=== PATIENT | male | born 1975 | race Caucasian/White ===

== ENCOUNTER 2020-06-05 02:46 | Emergency (ER) | payer SELFPAY ==
[2020-06-05] MEDS ORDERED: Sodium Chloride 0.9% 2.5 ML Syringe FLUSH PRN (02:52)
[2020-06-05] MEDS ORDERED: Sodium Chloride 0.9% 10 ML Syringe FLUSH PRN (02:52)
[2020-06-05] MEDS: Sodium Chloride 0.9% 1,000 ML IV ONE (03:17)
[2020-06-05] MEDS: MVI, Adult with Vitamin K 10 ML, Thiamine 100 MG, Folic Acid 1 MG in Sodium Chloride 0.... IV ONE ×4 (03:18)
--- NOTE | 2020-06-05 03:18 | EDM.PDOC ---
ED HPI GENERAL MEDICAL PROBLEM - General Chief Complaint: Drug or Alcohol Abuse Stated Complaint: INTOXICATION Time Seen by Provider: 06/05/20 03:00 - History of Present Illness INITIAL COMMENTS - FREE TEXT/NARRATIVE: HISTORY AND PHYSICAL: History of present illness: This is a 45-year-old gentleman who was brought in today by EMS secondary to acute alcohol intoxication. Per EMS, patient was playing his music extremely loud in his apartment so his neighbors called the police. Upon police arrival the patient did not answer his door immediately. Once patient answered his door, the patient appeared to be extremely intoxicated so EMS was dispatched by police. Upon EMS arrival, patient reported that he has recently lost his mother and father and he has been binging on alcohol excessively every day. Patient was brought into the ED today to see if we give him any assistance with alcohol detox. Patient denies any fevers, shakes, chills, nausea, vomiting, diarrhea, dysuria, frequency, urgency, chest pain, shortness of breath, abdominal pain, head injury, head trauma. Patient denies any HI/SI. Patient is extremely cooperative and is requesting assistance with detox that we can offer. Patient denies any alcohol withdrawal seizures in the past. Patient reports that whenever he is try to stop drinking alcohol that is been painful physically. Review of systems: As per history of present illness and below otherwise all systems reviewed and negative. Past medical history: As per history of present illness and as reviewed below otherwise noncontributory. Surgical history: As per history of present illness and as reviewed below otherwise noncontributory. Social history: No reported history of drug or alcohol abuse. Family history: As per history of present illness and as reviewed below otherwise n oncontributory. Physical exam: Constitutional: Patient is oriented to person, place, and time. Appears well- developed and well-nourished. No distress. HEENT: Moist mucous membranes Head: Normocephalic and atraumatic Eyes: Right eye exhibits no discharge. Left eye exhibits no discharge. No scleral icterus Neck: Normal range of motion. No tracheal deviation present. Cardiovascular: Normal rate and regular rhythm. Pulmonary: Effort normal, no respiratory distress. Abdominal: No distention Musculoskeletal: Normal range of motion Neurologic: Alert and oriented to person, place and time. Skin: [place], warm and dry. Psychiatric: Normal mood and affect. Behavior is normal. Judgment and thought content normal. Nursing note and vital signs have been reviewed Patient is alert awake and orient x3. Patient is appropriate, pleasant, cooperative and does not appear to be in any acute distress. Patient's vital signs are all within normal limits. This patient was seen and evaluated during the 2019 SARS-CoV-2 novel coronavirus pandemic period. Community viral transmission is ongoing at time of this encounter and the emergency department is operating under pandemic response pro cedures. Assessment and plan: This is a 45-year-old gentleman who presents ER today secondary to alcohol use disorder. Patient will be monitored in the ER. Patient will have his labs checked including a CBC, CMP and alcohol level. Patient be given a banana bag for hydration and will be allowed to sober up in the ED safely. Patient be given outpatient resources to contact for assistance with alcohol detox. Patient's labs have been reviewed. Patient is clinically hemodynamically stable and has been ambulating in ED with stable gait. At this time the patient is requesting to be discharged home. Patient be discharged home in stable condition. Reassessment at the time of disposition demonstrates that the patient is in no acute distress. The patient has remained stable throughout the entire ED visit and is without objective evidence for acute process requiring urgent intervention or hospitalization. The patient is stable for discharge, counseling is provided as documented above, discussed symptomatic treatment and specific conditions for return. I have spoken with the patient/caregiver and discussed todays findings, in addition to providing specific details for the plan of care. Questions are answered and there is agreement with the plan. Definitive disposition and diagnosis as appropriate pending reevaluation and review of above. - Related Data Allergies Allergy/AdvReac Type Severity Reaction Status Date / Time No Known Allergies Allergy Verified 06/05/20 02:47 Home Meds: Home Meds . [No Known Home Meds] 06/05/20 [History] Past Medical History HEENT History: Reports: None Cardiovascular History: Reports: None Respiratory History: Reports: None Gastrointestinal History: Reports: None Genitourinary History: Reports: None Musculoskeletal History: Reports: None Neurological History: Reports: None Psychiatric History: Reports: Addiction Endocrine/Metabolic History: Reports: None Insulin Pump Model and Log Chain Worker: None Hematologic History: Reports: None Immunologic History: Reports: None Oncologic (Cancer) History: Reports: None Dermatologic History: Reports: None - Infectious Disease History Infectious Disease History: Reports: None Social & Family History - Tobacco Use Tobacco Use Status *Q: Current Every Day Tobacco User Years of Tobacco use: 30 Packs/Tins Daily: 1 - Recreational Drug Use Recreational Drug Use: Yes Drug Use in Last 12 Months: Yes Recreational Drug Type: Reports: Marijuana/Hashish ED ROS GENERAL - Review of Systems Review Of Systems: See Below ED EXAM, GENERAL - Physical Exam Exam: See Below Course - Vital Signs Last Recorded V/S: Last Vital Signs Temp 97.3 F 06/05/20 06:30 Pulse 88 06/05/20 06:30 Resp 18 06/05/20 06:30 BP 108/81 06/05/20 06:30 Pulse Ox 96 06/05/20 06:30 - Orders/Labs/Meds Orders: Active Orders 24 hr Category Date Time Status Sodium Chloride 0.9% [Saline Flush] Med 06/05/20 02:52 Active 10 ml FLUSH ASDIRECTED PRN Sodium Chloride 0.9% [Saline Flush] Med 06/05/20 02:52 Active 2.5 ml FLUSH ASDIRECTED PRN Saline Lock Insert [OM.PC] Stat Oth 06/05/20 02:52 Ordered Medication Orders Sodium Chloride (Saline Flush) 10 ml FLUSH ASDIRECTED PRN PRN Reason: Keep Vein Open Sodium Chloride (Saline Flush) 2.5 ml FLUSH ASDIRECTED PRN PRN Reason: Keep Vein Open Labs: Laboratory Tests 06/05/20 06/05/20 Range/Units 02:51 03:09 WBC 6.48 (4.0-11.0) K/uL RBC 4.97 (4.50-5.90) M/uL Hgb 16.2 (13.0-17.0) g/dL Hct 49.0 (38.0-50.0) % MCV 98.6 H (80.0-98.0) fL MCH 32.6 H (27.0-32.0) pg MCHC 33.1 (31.0-37.0) g/dL RDW Std Deviation 49.1 (28.0-62.0) fl RDW Coeff of Claude 14 (11.0-15.0) % Plt Count 206 (150-400) K/uL MPV 10.00 (7.40-12.00) fL Neut % (Auto) 36.4 L (48.0-80.0) % Lymph % (Auto) 48.6 H (16.0-40.0) % Lamb % (Auto) 12.3 (0.0-15.0) % Eos % (Auto) 2.2 (0.0-7.0) % Baso % (Auto) 0.5 (0.0-1.5) % Neut # (Auto) 2.4 (1.4-5.7) K/uL Lymph # (Auto) 3.2 H (0.6-2.4) K/uL Lamb # (Auto) 0.8 (0.0-0.8) K/uL Eos # (Auto) 0.1 (0.0-0.7) K/uL Baso # (Auto) 0.0 (0.0-0.1) K/uL Nucleated RBC % 0.0 /100WBC Nucleated RBCs # 0 K/uL Sodium 144 (136-148) mmol/L Potassium 3.8 (3.5-5.1) mmol/L Chloride 105 (98-107) mmol/L Carbon Dioxide 25.2 (21.0-32.0) mmol/L BUN 13 (7.0-18.0) mg/dL Creatinine 0.9 (0.8-1.3) mg/dL Est Cr Clr Drug Dosing TNP Estimated GFR (MDRD) > 60.0 ml/min Glucose 110 H (74-106) mg/dL Calcium 8.0 L (8.5-10.1) mg/dL Total Bilirubin 0.2 (0.2-1.0) mg/dL AST 38 H (15-37) IU/L ALT 54 (14-63) IU/L Alkaline Phosphatase 77 (46-116) U/L Total Protein 7.7 (6.4-8.2) g/dL Albumin 3.7 (3.4-5.0) g/dL Globulin 4.0 (2.6-4.0) g/dL Albumin/Globulin Ratio 0.9 (0.9-1.6) Ethyl Alcohol 477 mg/dL Meds: Medications Generic Name Dose Route Start Last Admin Trade Name Freq PRN Reason Stop Dose Admin Sodium Chloride 10 ml 06/05/20 02:52 Saline Flush FLUSH ASDIRECTED PRN Keep Vein Open Sodium Chloride 2.5 ml 06/05/20 02:52 Saline Flush FLUSH ASDIRECTED PRN Keep Vein Open Discontinued Medications Generic Name Dose Route Start Last Admin Trade Name Aki PRN Reason Stop Dose Admin Sodium Chloride 1,000 mls @ 999 mls/hr 06/05/20 02:52 06/05/20 03:17 Normal Saline IV 06/05/20 03:52 999 mls/hr .Bolus ONE Administration Multivitamins/Minerals 10 ml/ 1,011.2 mls @ 1,000 mls/hr 06/05/20 02:52 06/05/20 03:18 Thiamine HCl 100 mg/ Folic IV 06/05/20 03:52 1,000 mls/hr Acid 1 mg/ Sodium Chloride ONETIME ONE Administration Departure - Departure Time of Disposition: 06:51 Disposition: Home, Self-Care 01 Condition: Good Clinical Impression: Alcohol abuse, Alcohol use disorder, Alcohol intoxication - Discharge Information Instructions: Alcohol Use Disorder Forms: ED Department Discharge Additional Instructions: You were seen and evaluated in ER today secondary to acute alcohol intoxication. Please make an appointment to see your family doctor or one of the clinics to assist you with an alcohol use detox program. The following information is given to patients seen in the emergency department who are being discharged to home. This information is to outline your options for follow-up care. We provide all patients seen in our emergency department with a follow-up referral. The need for follow-up, as well as the timing and circumstances, are variable depending upon the specifics of your emergency department visit. If you don't have a primary care physician on staff, we will provide you with a referral. We always advise you to contact your personal physician following an emergency department visit to inform them of the circumstance of the visit and for follow-up with them and/or the need for any referrals to a consulting specialist. The emergency department will also refer you to a specialist when appropriate. This referral assures that you have the opportunity for follow-up care with a specialist. All of these measure are taken in an effort to provide you with optimal care, which includes your follow-up. Under all circumstances we always encourage you to contact your private physician who remains a resource for coordinating your care. When calling for follow-up care, please make the office aware that this follow-up is from your recent emergency room visit. If for any reason you are refused follow-up, please contact the [facility] Emergency Department at and asked to speak to the emergency department charge nurse. [facility] [address], [place] [address] [facility] [address] [place] [id number] Sepsis Event Note (ED) - Evaluation Sepsis Screening Result: No Definite Risk - Focused Exam Vital Signs: Vital Signs Temp Pulse Resp BP Pulse Ox 06/05/20 06:30 97.3 F 88 18 108/81 96 06/05/20 04:40 94 18 120/82 98 06/05/20 02:47 97.2 F 107 H 18 130/92 H 96 - My Orders Last 24 Hours: My Active Orders 06/05/20 02:52 Sodium Chloride 0.9% [Saline Flush] 10 ml FLUSH ASDIRECTED PRN Sodium Chloride 0.9% [Saline Flush] 2.5 ml FLUSH ASDIRECTED PRN Saline Lock Insert [OM.PC] Stat - Assessment/Plan Last 24 Hours: My Active Orders 06/05/20 02:52 Sodium Chloride 0.9% [Saline Flush] 10 ml FLUSH ASDIRECTED PRN Sodium Chloride 0.9% [Saline Flush] 2.5 ml FLUSH ASDIRECTED PRN Saline Lock Insert [OM.PC] Stat
[2020-06-05 03:25] LABS: BLOOD UREA NITROGEN,BUN 13 mg/dL (7.0-18.0); CARBON DIOXIDE,CO2 25.2 mmol/L (21.0-32.0); CHLORIDE,CL 105 mmol/L (98-107); GLUCOSE RANDOM 110 mg/dL (74-106); POTASSIUM,K 3.8 mmol/L (3.5-5.1); SODIUM,NA 144 mmol/L (136-148)
== END 2020-06-05 07:00 | disposition home or self-care (01) ==
LOC: MW.ED 02:46
DX: F10.129 Alcohol abuse with intoxication, unspecified (principal); F17.210 Nicotine dependence, cigarettes, uncomplicated; Y90.8 Blood alcohol level of 240 mg/100 ml or more
CPT/HCPCS: 36415; 80053; 80179; 85025; 96365; 96366; 99284; J3411; J7030; 99283

== ENCOUNTER 2022-01-02 18:07 | Inpatient (IN) | payer MEDICAID ==
[2022-01-02] MEDS ORDERED: Aspirin 81 MG Tab.Chew PO ONE (18:10)
[2022-01-02] MEDS: Nitroglycerin 0.4 MG Tab.SL SL PRN ×2 (18:17→18:22)
[2022-01-02] MEDS ORDERED: Sodium Chloride 0.9% 1,000 ML IV ONE ×2 (18:31→20:20)
[2022-01-02 18:34] LABS: CARBON DIOXIDE,CO2 22.1 mmol/L (21.0-32.0); POTASSIUM,K 3.7 mmol/L (3.5-5.1)
[2022-01-02] MEDS ORDERED: Ondansetron 4 MG/2 ML SDV IVPUSH ONE (18:35)
[2022-01-02] MEDS ORDERED: Ondansetron 4 MG/2 ML SDV ONE (18:36)
[2022-01-02] MEDS ORDERED: Alum Hydro/Mag Hydro/Simeth XS 15 ML, Lidocaine 2% 5 ML PO ONE ×2 (18:40)
[2022-01-02] MEDS ORDERED: Pantoprazole 40 MG in Sodium Chloride 0.9% 10 ML IVPUSH ONE (18:41)
[2022-01-02] MEDS ORDERED: LORazepam 2 MG/ML SDV IVPUSH ONE ×2 (18:57→19:03)
[2022-01-02] MEDS ORDERED: Morphine 4 MG/ML VIAL IVPUSH ONE (19:03)
[2022-01-02] MEDS ORDERED: Magnesium Sulfate/Water 2 GM/50 ML Premix Bag IV ONE (19:32)
[2022-01-02] MEDS ORDERED: LORazepam 2 MG/ML SDV IVPUSH PRN (19:36)
[2022-01-02] MEDS ORDERED: Ondansetron 4 MG/2 ML SDV IVPUSH PRN (19:38)
[2022-01-02] MEDS ORDERED: Folic Acid 1 MG/0.2 ML UD Syringe SUBCUT SCH (19:45)
[2022-01-02] MEDS ORDERED: Magnesium Sulfate/Water 2 GM in Premix Bag 1 BAG IV ONE (19:45)
[2022-01-02] MEDS ORDERED: Sodium Chloride 0.9% 1,000 ML IV SCH (19:45)
[2022-01-02] MEDS: Sodium Chloride 0.9% 1,000 ML IV SCH (19:52)
[2022-01-02] MEDS: Thiamine 200 MG/2 ML MDV IVPUSH SCH (19:53)
[2022-01-02] MEDS: Morphine 2 MG/ML SYRINGE IVPUSH PRN (22:15)
[2022-01-03] MEDS: Sodium Chloride 0.9% 1,000 ML IV SCH ×3 (00:22→22:12)
[2022-01-03] MEDS: Morphine 2 MG/ML SYRINGE IVPUSH PRN ×3 (00:28→07:32)
[2022-01-03 07:00] LABS: POTASSIUM,K 4.3 mmol/L (3.5-5.1)
[2022-01-03] MEDS: Folic Acid 1 MG/0.2 ML UD Syringe IV SCH (08:07)
[2022-01-03] MEDS: Thiamine 200 MG/2 ML MDV IVPUSH SCH (08:07)
[2022-01-03] MEDS ORDERED: Sodium Chloride 0.9% 1,000 ML IV ONE (08:21)
[2022-01-03] MEDS ORDERED: Sodium Chloride 0.9% 10 ML Syringe FLUSH PRN (08:31)
[2022-01-03] MEDS ORDERED: Sodium Chloride 0.9% 2.5 ML Syringe FLUSH PRN (08:31)
[2022-01-03] MEDS ORDERED: Pantoprazole 40 MG in Sodium Chloride 0.9% 10 ML IVPUSH SCH (18:00)
[2022-01-03] MEDS ORDERED: Nicotine 21 MG/24 Hr Patch TRDERM PRN (21:00)
[2022-01-04] MEDS: Sodium Chloride 0.9% 1,000 ML IV SCH (03:23)
[2022-01-04 06:22] LABS: CARBON DIOXIDE,CO2 27.5 mmol/L (21.0-32.0); POTASSIUM,K 3.8 mmol/L (3.5-5.1)
[2022-01-04] MEDS: Folic Acid 1 MG/0.2 ML UD Syringe IV SCH (08:01)
[2022-01-04] MEDS: Thiamine 200 MG/2 ML MDV IVPUSH SCH (08:01)
[2022-01-04] MEDS: Phosphorus #1 250 MG Tab PO SCH ×2 (08:59→13:21)
== END 2022-01-04 13:30 | disposition home or self-care (01) | DRG 896 ==
LOC: MW.ED 18:07 → MW.MS 19:34 → OBSVTOIN 01-03 08:28 → MW.MS 01-03 16:56
PROVIDERS: ADMIT Internal Medicine; ATTEND Internal Medicine
DX: F10.239 Alcohol dependence with withdrawal, unspecified (principal); K85.20 Alcohol induced acute pancreatitis without necrosis or infection; Z20.822 Contact with and (suspected) exposure to COVID-19
CPT/HCPCS: 36415; 71045; 71045-26; 76705; 76705-26; 80053; 80061; 83690; 83735; 84100; 84484; 85025; 93005; 96361; 96365; 96375; 96376; 99285-25; A9270-GY; C9113; G0378; J2060; J2270; J2405; J3411; J3475; J3490; J7030; U0002

== ENCOUNTER 2022-06-16 09:52 | Emergency (ER) | payer SELFPAY ==
[2022-06-16] MEDS ORDERED: Ketorolac 30 MG/ML SDV IM ONE (10:35)
[2022-06-16] MEDS ORDERED: traMADol 50 MG Tab PO ONE (10:35)
== END 2022-06-16 12:11 | disposition home or self-care (01) ==
LOC: MW.ED 09:52
DX: S20.212A Contusion of left front wall of thorax, initial encounter (principal); Z72.0 Tobacco use; W00.0XXA Fall on same level due to ice and snow, initial encounter
CPT/HCPCS: 71101; 96372; 99283; A9270; J1885

== ENCOUNTER 2022-08-01 07:52 | Inpatient (IN) | payer SELFPAY ==
[2022-08-01] MEDS ORDERED: Ondansetron 4 MG/2 ML SDV IVPUSH ONE ×2 (07:57→09:26)
[2022-08-01] MEDS ORDERED: Lactated Ringers 1,000 ML IV SCH ×3 (08:00→13:00)
[2022-08-01] MEDS ORDERED: LORazepam 2 MG/ML SDV IVPUSH ONE (08:35)
[2022-08-01 08:45] LABS: BLOOD UREA NITROGEN,BUN 13 mg/dL (7.0-18.0); CARBON DIOXIDE,CO2 21.3 mmol/L (21.0-32.0); CHLORIDE,CL 100 mmol/L (98-107); GLUCOSE RANDOM 139 mg/dL (74-106); POTASSIUM,K 3.8 mmol/L (3.5-5.1); SODIUM,NA 138 mmol/L (136-148)
[2022-08-01 08:49] LABS: ESTIMATED GFR 92 mL/min (>60)
[2022-08-01 09:00] LABS: CORONAVIRUS COVID-19 NAA NEGATIVE (NEGATIVE); INFLUENZA A NAA NEGATIVE (NEGATIVE); INFLUENZA B NAA NEGATIVE (NEGATIVE); RESPIRATORY SYNCYTIAL VIR NAA NEGATIVE (NEGATIVE)
[2022-08-01 09:01] LABS: LIPASE 3103 U/L (73-393)
[2022-08-01] MEDS ORDERED: Iopamidol 755 MG/ML 500 ML Multipack Bottle IVPUSH STA (09:22)
[2022-08-01] MEDS ORDERED: Morphine 4 MG/ML Syringe IVPUSH ONE (09:26)
[2022-08-01] MEDS ORDERED: HYDROmorphone 1 MG/ML Syringe IVPUSH ONE (11:24)
[2022-08-01] MEDS ORDERED: HYDROmorphone 2 MG/ML Syringe IVPUSH PRN (13:20)
[2022-08-01] MEDS ORDERED: Temazepam 15 MG Cap PO PRN (13:20)
[2022-08-01] MEDS ORDERED: Acetaminophen 325 MG Tab PO PRN (13:20)
[2022-08-01] MEDS ORDERED: oxyCODONE 5 MG Tab PO PRN (13:20)
[2022-08-01] MEDS ORDERED: Ondansetron 4 MG Tab.DIS PO PRN (13:20)
[2022-08-01] MEDS ORDERED: Ibuprofen 600 MG Tab PO PRN (13:20)
[2022-08-01] MEDS ORDERED: Promethazine 25 MG Tab PO PRN (13:20)
[2022-08-01] MEDS ORDERED: LORazepam 2 MG/ML SDV IV PRN (13:20)
[2022-08-01] MEDS ORDERED: cloNIDine 0.1 MG Tab PO PRN (14:54)
[2022-08-01] MEDS: Enoxaparin 40 MG/0.4 ML Syringe SUBCUT SCH (15:35)
[2022-08-01] MEDS: Ondansetron 4 MG/2 ML SDV IVPUSH SCH ×2 (15:35→19:34)
[2022-08-01] MEDS: Sodium Chloride 0.9% 1,000 ML IV SCH ×2 (15:36→23:50)
[2022-08-01] MEDS: Nicotine 21 MG/24 Hr Patch TRDERM SCH (15:36)
[2022-08-01] MEDS: Docusate Sodium 100 MG Cap PO SCH (20:33)
[2022-08-01] MEDS ORDERED: Folic Acid 1 MG Tab PO SCH (21:00)
[2022-08-01] MEDS ORDERED: Thiamine 100 MG Tab PO SCH (21:00)
[2022-08-02] MEDS: Ondansetron 4 MG/2 ML SDV IVPUSH SCH ×4 (01:50→18:52)
[2022-08-02] MEDS: Sodium Chloride 0.9% 1,000 ML IV SCH ×3 (06:59→21:26)
[2022-08-02 07:29] LABS: CARBON DIOXIDE,CO2 24.7 mmol/L (21.0-32.0); POTASSIUM,K 3.5 mmol/L (3.5-5.1)
[2022-08-02] MEDS: Nicotine 21 MG/24 Hr Patch TRDERM SCH (09:56)
[2022-08-02] MEDS: Docusate Sodium 100 MG Cap PO SCH ×2 (09:57→21:24)
[2022-08-02] MEDS: Enoxaparin 40 MG/0.4 ML Syringe SUBCUT SCH (13:33)
[2022-08-03] MEDS: Ondansetron 4 MG/2 ML SDV IVPUSH SCH ×3 (01:28→12:58)
[2022-08-03] MEDS: Sodium Chloride 0.9% 1,000 ML IV SCH (04:49)
[2022-08-03 06:06] LABS: CARBON DIOXIDE,CO2 24.1 mmol/L (21.0-32.0); POTASSIUM,K 3.4 mmol/L (3.5-5.1)
[2022-08-03] MEDS ORDERED: Potassium Chloride 20 MEQ Tab.ER PO ONE (08:24)
[2022-08-03] MEDS: Docusate Sodium 100 MG Cap PO SCH (08:31)
[2022-08-03] MEDS: Nicotine 21 MG/24 Hr Patch TRDERM SCH (08:32)
== END 2022-08-03 13:15 | disposition home or self-care (01) | DRG 439 ==
LOC: MW.ED 07:52 → MW.MS 13:43
PROVIDERS: ADMIT Internal Medicine; ATTEND Internal Medicine
DX: K85.20 Alcohol induced acute pancreatitis without necrosis or infection (principal); F10.288 Alcohol dependence with other alcohol-induced disorder; J98.11 Atelectasis; F17.210 Nicotine dependence, cigarettes, uncomplicated; K57.90 Diverticulosis of intestine, part unspecified, without perforation or abscess without bleeding; K70.9 Alcoholic liver disease, unspecified
CPT/HCPCS: 0241U; 36415; 74177; 74177-26; 80053; 80307; 81003; 83605; 83690; 83735; 84100; 85025; 85610; 96361; 96374; 96375; 96376; 99285-25; A9270-GY; J1170; J1650; J2060; J2270; J2405; J7030; J7120; Q9967

== ENCOUNTER 2022-11-21 08:28 | Observation (INO) | payer SELFPAY ==
[2022-11-21] MEDS ORDERED: Sodium Chloride 0.9% 1,000 ML IV ONE ×2 (08:58→11:54)
[2022-11-21] MEDS ORDERED: LORazepam 2 MG/ML SDV IVPUSH ONE (09:03)
[2022-11-21] MEDS ORDERED: Ondansetron 4 MG/2 ML SDV IVPUSH ONE (09:03)
[2022-11-21] MEDS ORDERED: Morphine 4 MG/ML Syringe IVPUSH ONE (09:03)
[2022-11-21 09:31] LABS: BASOPHILS PERCENT AUTO 0.1 % (0.0-1.5); EOSINOPHILS ABSOLUTE AUTO 0.2 K/uL (0.0-0.7); HEMATOCRIT 46.5 % (38.0-50.0); HEMOGLOBIN 16.1 g/dL (13.0-17.0); LYMPHOCYTES PERCENT AUTO 12.9 % (16.0-40.0); MEAN CORPUSCULAR HEMOGLOBIN 32.9 pg (27.0-32.0); MEAN CORPUSCULAR HGB CONC 34.6 g/dL (31.0-37.0); MEAN CORPUSCULAR VOLUME 95.1 fL (80.0-98.0); MONOCYTES ABSOLUTE AUTO 0.8 K/uL (0.0-0.8); MONOCYTES PERCENT AUTO 5.2 % (0.0-15.0); NEUTROPHILS ABSOLUTE AUTO 12.4 K/uL (1.4-5.7); NEUTROPHILS PERCENT AUTO 80.8 % (48.0-80.0); NRBC ABSOLUTE 0 K/uL; PLATELET COUNT,PLT 227 K/uL (150-400); RED BLOOD CELL COUNT 4.89 M/uL (4.50-5.90); WHITE BLOOD CELL COUNT,WBC 15.33 K/uL (4.0-11.0)
[2022-11-21 09:56] LABS: A/G RATIO 0.9 (0.9-1.6); ALANINE AMINOTRANSFERASE,ALT 40 IU/L (14-63); ALBUMIN 3.6 g/dL (3.4-5.0); ALKALINE PHOSPHATASE 102 U/L (46-116); ASPARTATE AMNIOTRANSFERASE,AST 24 IU/L (15-37); BILIRUBIN TOTAL 0.8 mg/dL (0.2-1.0); BLOOD UREA NITROGEN,BUN 14 mg/dL (7.0-18.0); CALCIUM 9.1 mg/dL (8.5-10.1); CARBON DIOXIDE,CO2 24.5 mmol/L (21.0-32.0); CHLORIDE,CL 101 mmol/L (98-107); CREATININE 0.8 mg/dL (0.8-1.3); EST CRCL DRUG DOSING (CG) 108.06 mL/min; GLUCOSE RANDOM 123 mg/dL (74-106); MAGNESIUM 1.8 mg/dL (1.8-2.4); POTASSIUM,K 4.2 mmol/L (3.5-5.1); PROTEIN TOTAL,TP 7.6 g/dL (6.4-8.2); SODIUM,NA 137 mmol/L (136-148)
[2022-11-21 10:03] LABS: ESTIMATED GFR 108 mL/min (>60); ETHANOL BLOOD MEDICAL < 3.0 mg/dL; LIPASE 1711 U/L (73-393)
[2022-11-21] MEDS ORDERED: LORazepam 2 MG/ML SDV IV PRN (11:23)
[2022-11-21] MEDS ORDERED: Naloxone 0.4 MG/ML SDV IVPUSH PRN (11:23)
[2022-11-21] MEDS ORDERED: Sodium Chloride 0.9% 2.5 ML Syringe FLUSH PRN (11:23)
[2022-11-21] MEDS ORDERED: Docusate Sodium 100 MG Cap PO PRN (11:23)
[2022-11-21] MEDS ORDERED: HYDROmorphone 2 MG/ML Syringe IVPUSH PRN (11:23)
[2022-11-21] MEDS ORDERED: Ondansetron 4 MG/2 ML SDV IVPUSH PRN (11:23)
[2022-11-21] MEDS ORDERED: Sodium Chloride 0.9% 10 ML Syringe FLUSH PRN (11:23)
[2022-11-21] MEDS ORDERED: Thiamine 100 MG in Sodium Chloride 0.9% 100 ML IV SCH (11:30)
[2022-11-21] MEDS: Nicotine 14 MG/24 Hr Patch TRDERM SCH (13:10)
[2022-11-21] MEDS: Pantoprazole 40 MG in Sodium Chloride 0.9% 10 ML IVPUSH SCH (13:14)
[2022-11-21] MEDS: Thiamine 200 MG/2 ML MDV IV SCH (13:17)
[2022-11-21] MEDS: Folic Acid 1 MG/0.2 ML UD Syringe IV SCH (13:19)
[2022-11-21] MEDS: Sodium Chloride 0.9% 1,000 ML IV SCH ×2 (13:21→21:11)
[2022-11-21 18:31] LABS: APPEARANCE,URINE CLEAR; BILIRUBIN,URINE NEGATIVE (NEGATIVE); COLOR,URINE YELLOW; GLUCOSE,URINE NEGATIVE (NEGATIVE); KETONES,URINE NEGATIVE (NEGATIVE); LEUKOCYTE ESTERASE,URINE NEGATIVE (NEGATIVE); NITRITE,URINE NEGATIVE (NEGATIVE); OCCULT BLOOD,URINE NEGATIVE (NEGATIVE); PROTEIN,URINE NEGATIVE (NEGATIVE); UROBILINOGEN,URINE 0.2 EU/dL (<2.0)
[2022-11-21 18:40] LABS: AMPHETAMINES SCREEN, URINE NEGATIVE (CUTOFF=500); BARBITURATE SCREEN,URINE NEGATIVE (CUTOFF=200); BENZODIAZEPINES SCREEN,URINE PRESUMPTIVE POSITIVE (CUTOFF=150); BUPRENORPHINE SCREEN,URINE NEGATIVE (CUTOFF=10); METHADONE SCREEN, URINE NEGATIVE (CUTOFF=200); METHAMPHETAMINES SCREEN, URINE NEGATIVE (CUTOFF=500); OXYCODONE SCREEN,URINE NEGATIVE (CUT0FF=100); PCP SCREEN,URINE NEGATIVE (CUTOFF=25); PROPOXYPHENE SCREEN,URINE NEGATIVE (CUTOFF=300); THC SCREEN,URINE 20 NG/ML PRESUMPTIVE POSITIVE (CUTOFF=50)
[2022-11-22] MEDS: Sodium Chloride 0.9% 1,000 ML IV SCH ×2 (03:54→12:59)
[2022-11-22 05:24] LABS: BASOPHILS PERCENT AUTO 0.2 % (0.0-1.5); EOSINOPHILS ABSOLUTE AUTO 0.4 K/uL (0.0-0.7); EOSINOPHILS PERCENT AUTO 4.3 % (0.0-7.0); HEMATOCRIT 41.4 % (38.0-50.0); HEMOGLOBIN 14.2 g/dL (13.0-17.0); LYMPHOCYTES ABSOLUTE AUTO 2.4 K/uL (0.6-2.4); LYMPHOCYTES PERCENT AUTO 24.8 % (16.0-40.0); MEAN CORPUSCULAR HEMOGLOBIN 32.9 pg (27.0-32.0); MEAN CORPUSCULAR HGB CONC 34.3 g/dL (31.0-37.0); MEAN CORPUSCULAR VOLUME 95.8 fL (80.0-98.0); MONOCYTES ABSOLUTE AUTO 0.7 K/uL (0.0-0.8); MONOCYTES PERCENT AUTO 7.4 % (0.0-15.0); NEUTROPHILS ABSOLUTE AUTO 6.1 K/uL (1.4-5.7); NEUTROPHILS PERCENT AUTO 63.3 % (48.0-80.0); NRBC ABSOLUTE 0 K/uL; PLATELET COUNT,PLT 189 K/uL (150-400); RED BLOOD CELL COUNT 4.32 M/uL (4.50-5.90); WHITE BLOOD CELL COUNT,WBC 9.57 K/uL (4.0-11.0)
[2022-11-22 05:49] LABS: A/G RATIO 0.8 (0.9-1.6); ALBUMIN 2.9 g/dL (3.4-5.0); BILIRUBIN TOTAL 0.9 mg/dL (0.2-1.0); CARBON DIOXIDE,CO2 24.4 mmol/L (21.0-32.0); CREATININE 0.7 mg/dL (0.8-1.3); EST CRCL DRUG DOSING (CG) 125.58 mL/min; MAGNESIUM 1.7 mg/dL (1.8-2.4); PROTEIN TOTAL,TP 6.4 g/dL (6.4-8.2)
[2022-11-22] MEDS ORDERED: Magnesium Sulfate/Water 2 GM in Premix Bag 1 BAG IV ONE (07:55)
[2022-11-22] MEDS: Nicotine 14 MG/24 Hr Patch TRDERM SCH (08:12)
[2022-11-22] MEDS: Thiamine 200 MG/2 ML MDV IV SCH (08:13)
[2022-11-22] MEDS: Folic Acid 1 MG/0.2 ML UD Syringe IV SCH (08:13)
[2022-11-22] MEDS ORDERED: HYDROmorphone 1 MG/ML Syringe IVPUSH PRN (08:19)
[2022-11-22] MEDS: Pantoprazole 40 MG in Sodium Chloride 0.9% 10 ML IVPUSH SCH (12:59)
== END 2022-11-22 12:59 | disposition home or self-care (01) ==
LOC: MW.ED 08:28 → MW.MS 10:29
PROVIDERS: ADMIT Internal Medicine; ATTEND Internal Medicine
DX: K85.20 Alcohol induced acute pancreatitis without necrosis or infection (principal); F10.139 Alcohol abuse with withdrawal, unspecified; S83.92XA Sprain of unspecified site of left knee, initial encounter; F17.210 Nicotine dependence, cigarettes, uncomplicated; Z79.899 Other long term (current) drug therapy; Y90.0 Blood alcohol level of less than 20 mg/100 ml; X58.XXXA Exposure to other specified factors, initial encounter; Y93.67 Activity, basketball
CPT/HCPCS: 36415; 76705; 80053; 80305; 80307; 81003; 83690; 83735; 84100; 85025; 96361; 96365; 96366; 96375; 96376; 99285; A9270; C9113; G0378; J1170; J2060; J2270; J2405; J3411; J3475; J3490; J7030; 96374; 99222; 99238; 99284

== ENCOUNTER 2022-12-26 19:45 | Inpatient (IN) | payer SELFPAY ==
[2022-12-26] MEDS ORDERED: Sodium Chloride 0.9% 1,000 ML IV ONE (19:56)
[2022-12-26 20:13] LABS: BASOPHILS PERCENT AUTO 0.2 % (0.0-1.5); EOSINOPHILS ABSOLUTE AUTO 0.1 K/uL (0.0-0.7); EOSINOPHILS PERCENT AUTO 0.4 % (0.0-7.0); HEMOGLOBIN 16.6 g/dL (13.0-17.0); LYMPHOCYTES ABSOLUTE AUTO 2.6 K/uL (0.6-2.4); MEAN CORPUSCULAR HEMOGLOBIN 32.8 pg (27.0-32.0); MEAN CORPUSCULAR HGB CONC 35.3 g/dL (31.0-37.0); MEAN CORPUSCULAR VOLUME 92.9 fL (80.0-98.0); MONOCYTES ABSOLUTE AUTO 1.4 K/uL (0.0-0.8); MONOCYTES PERCENT AUTO 9.2 % (0.0-15.0); NEUTROPHILS ABSOLUTE AUTO 11.2 K/uL (1.4-5.7); NEUTROPHILS PERCENT AUTO 73.2 % (48.0-80.0); NRBC ABSOLUTE 0 K/uL; PLATELET COUNT,PLT 284 K/uL (150-400); RED BLOOD CELL COUNT 5.06 M/uL (4.50-5.90); WHITE BLOOD CELL COUNT,WBC 15.27 K/uL (4.0-11.0)
[2022-12-26] MEDS ORDERED: Morphine 4 MG/ML Syringe IVPUSH ONE (20:13)
[2022-12-26] MEDS ORDERED: Ondansetron 4 MG/2 ML SDV IVPUSH ONE (20:13)
[2022-12-26 20:15] LABS: APPEARANCE,URINE CLEAR; BILIRUBIN,URINE MODERATE (NEGATIVE); COLOR,URINE ORANGE; GLUCOSE,URINE NEGATIVE (NEGATIVE); KETONES,URINE 40 mg/dL (NEGATIVE); LEUKOCYTE ESTERASE,URINE NEGATIVE (NEGATIVE); NITRITE,URINE NEGATIVE (NEGATIVE); OCCULT BLOOD,URINE NEGATIVE (NEGATIVE); PROTEIN,URINE 30 mg/dL (NEGATIVE)
[2022-12-26 20:20] LABS: INR 0.99 (0.86-1.11)
[2022-12-26 20:22] LABS: AMORPHOUS SEDIMENT,URINE MODERATE (NEGATIVE); BACTERIA,URINE FEW (NEGATIVE); EPITHELIAL CELLS,URINE FEW (NONE-FEW); MUCUS,URINE MANY (NONE-MOD); RBC,URINE 0-2 (0-2/HPF); SQUAMOUS EPITHELIAL CELLS,UR FEW; WBC,URINE 0-2 (0-5/HPF)
[2022-12-26] MEDS ORDERED: Iopamidol 755 MG/ML 500 ML Multipack Bottle IVPUSH ONE (20:38)
[2022-12-26 20:45] LABS: A/G RATIO 1.1 (0.9-1.6); ALANINE AMINOTRANSFERASE,ALT 31 IU/L (14-63); ALBUMIN 4.2 g/dL (3.4-5.0); ALKALINE PHOSPHATASE 105 U/L (46-116); ASPARTATE AMNIOTRANSFERASE,AST 28 IU/L (15-37); BILIRUBIN TOTAL 1.5 mg/dL (0.2-1.0); BLOOD UREA NITROGEN,BUN 13 mg/dL (7.0-18.0); CALCIUM 9.5 mg/dL (8.5-10.1); CHLORIDE,CL 101 mmol/L (98-107); CREATININE 0.9 mg/dL (0.8-1.3); EST CRCL DRUG DOSING (CG) 96.06 mL/min; ETHANOL BLOOD MEDICAL <3 mg/dL; GLUCOSE RANDOM 114 mg/dL (74-106); LIPASE 1411 U/L (73-393); POTASSIUM,K 3.8 mmol/L (3.5-5.1); PROTEIN TOTAL,TP 8.1 g/dL (6.4-8.2); SODIUM,NA 140 mmol/L (136-148)
[2022-12-26 20:49] LABS: ESTIMATED GFR 105 mL/min (>60)
[2022-12-27] MEDS ORDERED: HYDROmorphone 1 MG/ML Syringe IVPUSH ONE (00:32)
[2022-12-27] MEDS ORDERED: LORazepam 2 MG/ML SDV IVPUSH PRN ×2 (02:04→08:07)
[2022-12-27] MEDS ORDERED: Ondansetron 4 MG/2 ML SDV IVPUSH PRN (02:07)
[2022-12-27] MEDS: Sodium Chloride 0.9% 1,000 ML IV SCH ×5 (02:26→20:01)
[2022-12-27 06:27] LABS: BASOPHILS PERCENT AUTO 0.2 % (0.0-1.5); EOSINOPHILS ABSOLUTE AUTO 0.2 K/uL (0.0-0.7); EOSINOPHILS PERCENT AUTO 2.4 % (0.0-7.0); HEMATOCRIT 42.5 % (38.0-50.0); HEMOGLOBIN 14.1 g/dL (13.0-17.0); LYMPHOCYTES ABSOLUTE AUTO 1.8 K/uL (0.6-2.4); LYMPHOCYTES PERCENT AUTO 18.4 % (16.0-40.0); MEAN CORPUSCULAR HEMOGLOBIN 31.5 pg (27.0-32.0); MEAN CORPUSCULAR HGB CONC 33.2 g/dL (31.0-37.0); MEAN CORPUSCULAR VOLUME 95.1 fL (80.0-98.0); MONOCYTES PERCENT AUTO 10.1 % (0.0-15.0); NEUTROPHILS ABSOLUTE AUTO 6.9 K/uL (1.4-5.7); NEUTROPHILS PERCENT AUTO 68.9 % (48.0-80.0); NRBC ABSOLUTE 0 K/uL; PLATELET COUNT,PLT 196 K/uL (150-400); RED BLOOD CELL COUNT 4.47 M/uL (4.50-5.90); WHITE BLOOD CELL COUNT,WBC 10.02 K/uL (4.0-11.0)
[2022-12-27] MEDS: Morphine 2 MG/ML SYRINGE IVPUSH PRN ×2 (06:31→16:26)
[2022-12-27 07:09] LABS: ALBUMIN 3.2 g/dL (3.4-5.0); BILIRUBIN TOTAL 1.1 mg/dL (0.2-1.0); CALCIUM 8.6 mg/dL (8.5-10.1); CARBON DIOXIDE,CO2 23.1 mmol/L (21.0-32.0); CREATININE 0.8 mg/dL (0.8-1.3); EST CRCL DRUG DOSING (CG) 108.06 mL/min; POTASSIUM,K 4.2 mmol/L (3.5-5.1); PROTEIN TOTAL,TP 6.4 g/dL (6.4-8.2)
[2022-12-27] MEDS ORDERED: Sodium Chloride 0.9% 2.5 ML Syringe FLUSH PRN (08:05)
[2022-12-27] MEDS ORDERED: Sodium Chloride 0.9% 10 ML Syringe FLUSH PRN (08:05)
[2022-12-27] MEDS: Pantoprazole 40 MG in Sodium Chloride 0.9% 10 ML IVPUSH SCH (08:26)
[2022-12-27] MEDS: Heparin Sodium 5,000 Units/ML Vial SUBCUT SCH ×2 (08:27→20:40)
[2022-12-27] MEDS: Thiamine 200 MG/2 ML MDV IVPUSH SCH (08:27)
[2022-12-27] MEDS: Folic Acid 1 MG/0.2 ML UD Syringe IV SCH (08:27)
[2022-12-27] MEDS ORDERED: Thiamine 100 MG in Sodium Chloride 0.9% 100 ML IV SCH (09:00)
[2022-12-27] MEDS ORDERED: Famotidine 20 MG Tab PO SCH (09:00)
[2022-12-27] MEDS ORDERED: Nicotine 14 MG/24 Hr Patch TRDERM PRN (14:40)
[2022-12-28] MEDS: Sodium Chloride 0.9% 1,000 ML IV SCH (00:55)
[2022-12-28 06:29] LABS: BASOPHILS PERCENT AUTO 0.2 % (0.0-1.5); EOSINOPHILS ABSOLUTE AUTO 0.3 K/uL (0.0-0.7); EOSINOPHILS PERCENT AUTO 3.1 % (0.0-7.0); HEMATOCRIT 40.8 % (38.0-50.0); HEMOGLOBIN 13.4 g/dL (13.0-17.0); LYMPHOCYTES ABSOLUTE AUTO 2.5 K/uL (0.6-2.4); LYMPHOCYTES PERCENT AUTO 25.4 % (16.0-40.0); MEAN CORPUSCULAR HEMOGLOBIN 31.5 pg (27.0-32.0); MEAN CORPUSCULAR HGB CONC 32.8 g/dL (31.0-37.0); MEAN CORPUSCULAR VOLUME 95.8 fL (80.0-98.0); MONOCYTES ABSOLUTE AUTO 0.9 K/uL (0.0-0.8); NEUTROPHILS PERCENT AUTO 62.3 % (48.0-80.0); NRBC ABSOLUTE 0 K/uL; PLATELET COUNT,PLT 182 K/uL (150-400); RED BLOOD CELL COUNT 4.26 M/uL (4.50-5.90); WHITE BLOOD CELL COUNT,WBC 9.69 K/uL (4.0-11.0)
[2022-12-28 08:11] LABS: A/G RATIO 0.9 (0.9-1.6); ALBUMIN 3.2 g/dL (3.4-5.0); BILIRUBIN TOTAL 0.9 mg/dL (0.2-1.0); CALCIUM 8.2 mg/dL (8.5-10.1); CREATININE 0.7 mg/dL (0.8-1.3); EST CRCL DRUG DOSING (CG) 123.5 mL/min; MAGNESIUM 1.6 mg/dL (1.8-2.4); PHOSPHORUS 2.5 mg/dL (2.6-4.7); PROTEIN TOTAL,TP 6.9 g/dL (6.4-8.2)
[2022-12-28] MEDS ORDERED: Phosphorus #1 250 MG Tab PO SCH ×2 (08:19→12:00)
[2022-12-28] MEDS ORDERED: Magnesium Sulfate/Water 2 GM in Premix Bag 1 BAG IV ONE (08:19)
[2022-12-28] MEDS: Pantoprazole 40 MG in Sodium Chloride 0.9% 10 ML IVPUSH SCH (09:36)
[2022-12-28] MEDS: Thiamine 200 MG/2 ML MDV IVPUSH SCH (09:37)
[2022-12-28] MEDS: Folic Acid 1 MG/0.2 ML UD Syringe IV SCH (09:38)
[2022-12-28] MEDS: Heparin Sodium 5,000 Units/ML Vial SUBCUT SCH (09:45)
== END 2022-12-28 14:10 | disposition home or self-care (01) | DRG 439 ==
LOC: MW.ED 19:45 → MW.MS 12-27 00:26
PROVIDERS: ADMIT Internal Medicine; ATTEND Internal Medicine
DX: K85.20 Alcohol induced acute pancreatitis without necrosis or infection (principal); F10.139 Alcohol abuse with withdrawal, unspecified; K44.9 Diaphragmatic hernia without obstruction or gangrene; K76.0 Fatty (change of) liver, not elsewhere classified; Z98.890 Other specified postprocedural states; Z79.899 Other long term (current) drug therapy
CPT/HCPCS: 36415; 74177; 74177-26; 80053; 80307; 81001; 82947; 83690; 83735; 84100; 85025; 85610; 96361; 96374; 96375; 99284; 99285-25; A9270-GY; C9113; J1170; J1644; J2270; J2405; J3411; J3475; J3490; J7030; Q9967

== ENCOUNTER 2025-05-02 16:26 | Emergency (ER) | payer MEDICAID | END 2025-05-02 16:28 | disposition left against medical advice (07) | LOC: MW.ED 16:26 | DX: Z53.21 Procedure and treatment not carried out due to patient leaving prior to being seen by health care provider (principal) ==